=== PATIENT | female | born 1960 | race African-American/Black ===

== ENCOUNTER 2022-06-17 12:57 | Emergency (ER) | payer MEDICAID ==
[~2022-06-17] VITALS: Ht 167.6 cm; Wt 99.1 kg
[2022-06-17] MEDS ORDERED: HYDROCODONE/ACETAMINOPHEN 10-325 MG TABLET PO ONE (15:30)
[2022-06-17 16:20] LABS: APPEARANCE,URINE CLEAR (CLEAR); BILIRUBIN,URINE NEGATIVE (NEGATIVE); GLUCOSE, URINE (UA) NEGATIVE (NEGATIVE); KETONES,URINE NEGATIVE (NEGATIVE); LEUKOCYTE ESTERASE ,URINE NEGATIVE (NEGATIVE); NITRATE,URINE NEGATIVE (NEGATIVE); OCCULT BLOOD,URINE NEGATIVE (NEGATIVE); PH,URINE 6.5 (5.0-8.0); PROTEIN,URINE NEGATIVE (NEGATIVE); SPECIFIC GRAVITIY, URINE 1.024 (1.003-1.030); UROBILINOGEN,URINE <=1.0 mg/dL (<=1.0)
[2022-06-17] MEDS ORDERED: CYCL-397 PO (16:28)
[2022-06-17] MEDS ORDERED: NAPR-1025 PO (16:31)
[2022-06-17] MEDS ORDERED: LIDO-16 TP (16:31)
[2022-06-17 16:51] VITALS: BP 112/60
== END 2022-06-17 16:54 | disposition home or self-care (01) ==
LOC: EMS 12:57
DX: S39.012A Strain of muscle, fascia and tendon of lower back, initial encounter (principal); F17.210 Nicotine dependence, cigarettes, uncomplicated; X58.XXXA Exposure to other specified factors, initial encounter; Y93.89 Activity, other specified; Y92.89 Other specified places as the place of occurrence of the external cause; Y99.8 Other external cause status
CPT/HCPCS: 81003; 99283

== ENCOUNTER 2022-06-19 19:08 | Emergency (ER) | payer MEDICAID ==
[~2022-06-19] VITALS: Ht 167.6 cm; Wt 90.9 kg
[~2022-06-19 19:08] MED LIST: CYCL-397 PO; LIDO-16 TP; NAPR-1025 PO
[2022-06-19] MEDS ORDERED: HYDROCODONE/ACETAMINOPHEN 5-325 MG TABLET PO ONE (19:45)
[2022-06-19 19:56] VITALS: BP 123/75
[2022-06-19] MEDS ORDERED: GABA-1181 PO (21:32)
== END 2022-06-19 22:12 | disposition home or self-care (01) ==
LOC: EMS 19:17
DX: M54.41 Lumbago with sciatica, right side (principal); F17.210 Nicotine dependence, cigarettes, uncomplicated; Z98.890 Other specified postprocedural states
CPT/HCPCS: 72131; 99284